=== PATIENT | male | born 1980 | race Caucasian/White ===

== ENCOUNTER 2020-11-28 05:59 | Emergency (ER) | payer BC, OTHER ==
[~2020-11-28] VITALS: Ht 190.5 cm; Wt 102.1 kg
[2020-11-28] MEDS ORDERED: CASIRIVIMAB/IMDEVIMAB 10 ML in SODIUM CHLORIDE 0.9% 100 ML IV ONE (06:00)
== END 2020-11-28 07:26 | disposition home or self-care (01) ==
LOC: ER 06:26
DX: R05 Cough (principal); U07.1 COVID-19
CPT/HCPCS: 99283